=== PATIENT | male | born 1995 | race Caucasian/White ===

== ENCOUNTER 2017-11-06 16:14 | Emergency (ER) | payer MEDICAID ==
[~2017-11-06] VITALS: Ht 170.2 cm; Wt 137.9 kg
[2017-11-06 16:26] VITALS: Ht 170.2 cm; Wt 137.9 kg
[2017-11-06 18:57] LABS: UA SPECIFIC GRAVITY >=1.030 (1.005-1.035); microscopic required? YES; urine erythrocyte NEGATIVE (NEGATIVE)
[2017-11-06 19:12] LABS: AMPHETAMINE QUAL UR NONE DETECTED (See below)
[2017-11-06 20:15] VITALS: BP 143/95
== END 2017-11-06 20:32 | disposition home or self-care (01) ==
LOC: ED 16:14
PROVIDERS: Emergency Medicine
DX: N52.9 Male erectile dysfunction, unspecified (principal); E66.9 Obesity, unspecified